=== PATIENT | male | born 1965 | race Caucasian/White ===

== ENCOUNTER 2021-03-14 14:12 | Inpatient (IN) | payer BC ==
[~2021-03-14] VITALS: Ht 182.9 cm; Wt 103.7 kg
[2021-03-14] MEDS ORDERED: ZOLPIDEM 5 MG TABLET. PO PRN (14:30)
[2021-03-14] MEDS ORDERED: MAG HYDROX/AL HYDROX/SIMETH 30 ML ORAL.SUSP PO PRN (14:30)
[2021-03-14 15:42] LABS: BASO # 0.1 x10^3/uL (0.0-0.2); BASO % 1 % (0-3); EOS # 0.2 x10^3/uL (0.0-0.7); EOS % 3 % (0-3); HEMOGLOBIN 14.6 g/dL (13.0-17.5); LYMPH # 3.6 x10^3/uL (1.0-4.8); LYMPH % 37 % (24-48); MEAN CORPUSCULAR HEMOGLOBIN 32 pg (25-35); MEAN CORPUSCULAR HGB CONC 34 g/dL (31-37); MEAN CORPUSCULAR VOLUME 95 fL (79-100); MONO # 0.7 x10^3/uL (0.0-1.1); MONO % 7 % (0-9); NEUT # 5.2 x10^3uL (1.8-7.7); NEUT % 53 % (31-73); PLATELET COUNT 243 x10^3/uL (140-400); RED BLOOD COUNT 4.51 x10^6/uL (4.30-5.70); WHITE BLOOD COUNT 9.8 x10^3/uL (4.0-11.0)
[2021-03-14] MEDS ORDERED: ACETAMINOPHEN 500 MG TABLET PO PRN (15:45)
[2021-03-14 15:55] LABS: ALBUMIN 3.6 g/dL (3.4-5.0); CALCIUM 8.8 mg/dL (8.5-10.1); CREATININE 1.2 mg/dL (0.7-1.3); GFR 63.1; POTASSIUM 3.8 mmol/L (3.5-5.1); TOTAL BILIRUBIN 0.5 mg/dL (0.2-1.0); TOTAL PROTEIN 7.1 g/dL (6.4-8.2)
[2021-03-14 16:19] VITALS: BP 138/64
[2021-03-14] MEDS ORDERED: VANCOMYCIN 2 GM in IV NORMAL SALINE 500ML 500 ML IV ONE (17:00)
[2021-03-14] MEDS: HYDROcodone/APAP 7.5/325MG 1 TAB TABLET PO PRN (17:09)
[2021-03-14 19:23] VITALS: BP 120/74
--- NOTE | 2021-03-14 19:26 | RAD ---
Exam: Chest one view INDICATION: Headache, hypertension TECHNIQUE: Frontal view of the chest Comparisons: 12/26/2016 FINDINGS: Left-sided PICC with tip at the SVC. The cardiomediastinal silhouette and pulmonary vessels are within normal limits. The lung and pleural spaces are clear. IMPRESSION: No acute cardiopulmonary process. Electronically signed by: Alexandria Aleman MD (03/14/2021 7:24 PM) JOHANA
[2021-03-14] MEDS: VANCOMYCIN PER PHARMACY MC PRN (19:31)
[2021-03-14 20:10] LABS: BACTERIA,URINE 0 /HPF (0-FEW); BILIRUBIN,URINE NEG (NEG); CLARITY,URINE CLEAR; COLOR,URINE YELLOW; GLUCOSE,URINE NEG (NEG); NITRITE,URINE NEG (NEG); RBC,URINE 0 /HPF (0-2); UROBILINOGEN,URINE 0.2 mg/dL (0.2 mg/dL); WBC,URINE 0 /HPF (0-4)
[2021-03-14 20:11] LABS: SQUAMOUS EPITHELIAL CELL,UR OCC /LPF
[2021-03-14] MEDS: LACTOBACILLUS RHAMNOSUS GG 1 CAPSULE. PO SCH (20:23)
[2021-03-14] MEDS: CEFEPIME HCL 2 GM in IV NORMAL SALINE 100ML 100 ML IV SCH (20:23)
[2021-03-14 22:36] VITALS: BP 125/78
[2021-03-15] MEDS: VANCOMYCIN 1.5 GM in IV NORMAL SALINE 500ML 500 ML IV SCH ×2 (06:33→17:43)
[2021-03-15] MEDS: HYDROcodone/APAP 7.5/325MG 1 TAB TABLET PO PRN ×2 (06:43→17:42)
[2021-03-15] MEDS: LACTOBACILLUS RHAMNOSUS GG 1 CAPSULE. PO SCH ×2 (08:55→21:16)
[2021-03-15] MEDS: CEFEPIME HCL 2 GM in IV NORMAL SALINE 100ML 100 ML IV SCH ×2 (08:56→21:16)
[2021-03-15 11:15] VITALS: BP 134/80
[2021-03-15 15:33] VITALS: BP 124/84
[2021-03-15 18:01] VITALS: BP 128/88
[2021-03-16 00:34] VITALS: BP 113/70
[2021-03-16 00:36] VITALS: BP 114/76
[2021-03-16 06:30] VITALS: BP 112/75
[2021-03-16 06:42] LABS: VANC TR 14.5 mcg/mL (10.0-20.0)
[2021-03-16] MEDS: VANCOMYCIN 1.5 GM in IV NORMAL SALINE 500ML 500 ML IV SCH (06:54)
[2021-03-16] MEDS: CEFEPIME HCL 2 GM in IV NORMAL SALINE 100ML 100 ML IV SCH (09:20)
[2021-03-16] MEDS: LACTOBACILLUS RHAMNOSUS GG 1 CAPSULE. PO SCH (09:20)
[2021-03-16] MEDS: VANCOMYCIN PER PHARMACY MC PRN (09:51)
[2021-03-16 10:36] VITALS: BP 121/85
[2021-03-16] MEDS: HYDROcodone/APAP 7.5/325MG 1 TAB TABLET PO PRN (10:55)
--- NOTE | 2021-03-17 00:56 | PN ---
DATE: 03/16/2021 SUBJECTIVE: A 55-year-old male came in with severe back pain, has been worked up. He has been noncompliant and getting his antibiotics with the patient's recent MRI scan reported on day of admission showed possible osteomyelitis and diskitis in his L4-L5 area. The patient also notes he had a degree of swelling extending into one of the pedicles and at atypical high T2 signal with associated disk diskitis and osteomyelitis is possible. The patient also was noted to have a positive blood culture. Final report is pending, although certainly needs to be evaluated. He was placed on IV vancomycin and cefepime. IV PICC line was placed because of positive blood cultures and the electrolytes that were reported on the day of discharge. He was doing much better as he had received two doses 2 days' worth of antibiotics and was feeling much better as that antibiotic did go in. LABORATORY DATA: The patient's chest x-ray was unremarkable. The patient's labs show white count 9.8, hemoglobin and hematocrit 14.6 and 43. The patient's sodium and potassium 142 and 3.8, blood sugar 116. Lactic acid had been as high as 20, came down to 2.3 and then 0.6. Liver enzymes were normal. Kidney function was normal. Albumin was normal. The patient otherwise had made good progress and was discharged home. IMPRESSION: Osteomyelitis of the vertebral body and possible osteomyelitis of a pedicle of L4-L5 and diskitis. Positive blood cultures. PLAN: The patient will be discharged home, see MRI head and make further evaluation on him as indicated. The patient to continue to receive vancomycin and cefepime as an outpatient twice daily and make further assessment per those results. The patient was basically on that. He was given hydrocodone #20 tablets 7.5/325 for the pain that was recognized as 8/10. Regular diet, decreased activity. Follow up with outpatient neurosurgery clinic. JOSEF/ZULEIKA/JONO DR: JOSEF/logan TID: [id number]
== END 2021-03-16 11:45 | disposition home or self-care (01) | DRG 541 ==
LOC: 1 SOUTH 14:22
PROVIDERS: ADMIT Family Medicine; ATTEND Family Medicine
PROC: 02HV33Z Insertion of Infusion Device into Superior Vena Cava, Percutaneous Approach (ICD-10-PCS; principal; 2021-03-14)
DX: M46.26 Osteomyelitis of vertebra, lumbar region (principal); Z91.19 Patient's noncompliance with other medical treatment and regimen; F32.9 Major depressive disorder, single episode, unspecified
CPT/HCPCS: 36415; 71045; 80053; 80202; 81001; 83605; 85025; 87040; 87205; J0692; J3370; J7040

== ENCOUNTER → 2021-03-23 | Outpatient (CLI) | payer BC ==
[2021-03-20 09:15] VITALS: BP 121/74
[2021-03-23 11:09] LABS: VANC TR 12.7 mcg/mL (10.0-20.0)
== END ==
LOC: SPEC 09:07
PROVIDERS: ATTEND Family Medicine
DX: M46.26 Osteomyelitis of vertebra, lumbar region (principal)
CPT/HCPCS: 36415; 80202

== ENCOUNTER → 2021-03-28 | Outpatient (CLI) | payer BC ==
[2021-03-20 09:15] VITALS: BP 121/74
[2021-03-28 10:59] LABS: BLOOD UREA NITROGEN 11 mg/dL (8-26); GFR 77.9; VANC TR 17.9 mcg/mL (10.0-20.0)
== END ==
LOC: SPEC 10:28
PROVIDERS: ATTEND Family Medicine
DX: Z45.2 Encounter for adjustment and management of vascular access device (principal)
CPT/HCPCS: 36415; 80202; 82565; 84520

== ENCOUNTER → 2021-04-04 | Outpatient (CLI) | payer BC ==
[2021-03-20 09:15] VITALS: BP 121/74
[2021-04-04 12:08] LABS: HEMOGLOBIN 13.6 g/dL (13.0-17.5); RED BLOOD COUNT 4.28 x10^6/uL (4.30-5.70); RED CELL DISTRIBUTION WIDTH 12.6 % (11.5-14.5); WHITE BLOOD COUNT 11.1 x10^3/uL (4.0-11.0)
[2021-04-04 12:15] LABS: ALBUMIN 3.5 g/dL (3.4-5.0); ALBUMIN/GLOBULIN RATIO 1.1 (1.0-1.7); ALK PHOS 85 U/L (46-116); ALT (SGPT) 70 U/L (16-63); ANION GAP 11 (6-14); AST (SGOT) 33 U/L (15-37); BLOOD UREA NITROGEN 14 mg/dL (8-26); BUN/CREATININE RATIO 14 (6-20); CALCIUM 8.6 mg/dL (8.5-10.1); CARBON DIOXIDE 25 mmol/L (21-32); CHLORIDE 109 mmol/L (98-107); GFR 77.9; GLUCOSE 90 mg/dL (70-99); POTASSIUM 4.5 mmol/L (3.5-5.1); SODIUM 145 mmol/L (136-145); TOTAL BILIRUBIN 0.3 mg/dL (0.2-1.0); TOTAL PROTEIN 6.8 g/dL (6.4-8.2)
== END ==
LOC: SPEC 11:05
PROVIDERS: ATTEND Family Medicine
DX: Z45.2 Encounter for adjustment and management of vascular access device (principal); M46.26 Osteomyelitis of vertebra, lumbar region
CPT/HCPCS: 36415; 80053; 80202; 85027

== ENCOUNTER → 2021-04-11 | Outpatient (CLI) | payer BC ==
[2021-03-20 09:15] VITALS: BP 121/74
[2021-04-11 10:30] LABS: BASO # 0.1 x10^3/uL (0.0-0.2); BASO % 1 % (0-3); EOS # 0.3 x10^3/uL (0.0-0.7); EOS % 5 % (0-3); HEMATOCRIT 41.1 % (39.0-53.0); HEMOGLOBIN 13.9 g/dL (13.0-17.5); LYMPH # 2.2 x10^3/uL (1.0-4.8); LYMPH % 35 % (24-48); MEAN CORPUSCULAR HEMOGLOBIN 32 pg (25-35); MEAN CORPUSCULAR HGB CONC 34 g/dL (31-37); MEAN CORPUSCULAR VOLUME 94 fL (79-100); MONO # 0.6 x10^3/uL (0.0-1.1); MONO % 10 % (0-9); NEUT # 3.1 x10^3uL (1.8-7.7); NEUT % 50 % (31-73); PLATELET COUNT 193 x10^3/uL (140-400); RED BLOOD COUNT 4.38 x10^6/uL (4.30-5.70); RED CELL DISTRIBUTION WIDTH 12.5 % (11.5-14.5); WHITE BLOOD COUNT 6.3 x10^3/uL (4.0-11.0)
[2021-04-11 12:16] LABS: BLOOD UREA NITROGEN 13 mg/dL (8-26); CREATININE 1.1 mg/dL (0.7-1.3); GFR 69.8
== END ==
LOC: SPEC 09:47
PROVIDERS: ATTEND Family Medicine
DX: Z45.2 Encounter for adjustment and management of vascular access device (principal)
CPT/HCPCS: 36415; 80202; 82565; 84520; 85025

== ENCOUNTER → 2021-04-18 | Outpatient (CLI) | payer BC ==
[2021-03-20 09:15] VITALS: BP 121/74
[2021-04-18 08:54] LABS: HEMATOCRIT 39.3 % (39.0-53.0); HEMOGLOBIN 13.4 g/dL (13.0-17.5); RED BLOOD COUNT 4.24 x10^6/uL (4.30-5.70); RED CELL DISTRIBUTION WIDTH 12.5 % (11.5-14.5); WHITE BLOOD COUNT 3.4 x10^3/uL (4.0-11.0)
[2021-04-18 09:05] LABS: ALBUMIN 3.2 g/dL (3.4-5.0); ALK PHOS 83 U/L (46-116); ALT (SGPT) 57 U/L (16-63); ANION GAP 9 (6-14); AST (SGOT) 28 U/L (15-37); BLOOD UREA NITROGEN 14 mg/dL (8-26); BUN/CREATININE RATIO 13 (6-20); CALCIUM 8.6 mg/dL (8.5-10.1); CARBON DIOXIDE 27 mmol/L (21-32); CHLORIDE 109 mmol/L (98-107); CREATININE 1.1 mg/dL (0.7-1.3); GFR 69.8; GLUCOSE 88 mg/dL (70-99); POTASSIUM 4.1 mmol/L (3.5-5.1); SODIUM 145 mmol/L (136-145); TOTAL BILIRUBIN 0.4 mg/dL (0.2-1.0); TOTAL PROTEIN 6.4 g/dL (6.4-8.2); VANC TR 21.1 mcg/mL (10.0-20.0)
== END ==
LOC: SPEC 08:43
PROVIDERS: ATTEND Family Medicine
DX: Z45.2 Encounter for adjustment and management of vascular access device (principal); M46.26 Osteomyelitis of vertebra, lumbar region
CPT/HCPCS: 36415; 80053; 80202; 85027